=== PATIENT | female | born 1990 | race Caucasian/White ===

== ENCOUNTER → 2018-07-24 | Outpatient (CLI) | payer OTHER ==
[2018-07-24 13:08] LABS: T4, Free (Free Thyroxine) 0.97 ng/dL (0.78-2.19)
--- NOTE | 2018-07-24 13:18 | US ---
EXAMINATION TYPE: US thyroid st tissue head/neck DATE OF EXAM: 07/24/2018 COMPARISON: NONE CLINICAL HISTORY: R22.0 Swelling Mass. Fullness at right thyroid area x 1 year; maternal history of t hyroid disease GLAND SIZE: Right Lobe: 5.3 x 2.0 x 1.3 cm Overall Parenchyma: homogenous Left Lobe: 4.5 x 1.6 x 0.9 cm Overall Parenchyma: homogeneous Isthmus Thickness: 0.4 cm NODULES RIGHT: # of nodules measured on right: 1 1. 0.6 X 0.5 x 0.3 cm hypoechoic mixed nodule at the mid pole with well-defined margins. This nodu le is wider than tall and shows intranodular vascularity. Prior size: no previous US 2. 2 mm benign colloid cyst is noted. 3. At the area of pain there is a nodular region at the posterior margin of the thyroid gland that me asures approximately 5 mm on image 26. This could represent an ill-defined thyroid nodule or parathyr oid nodule. LEFT: # of nodules measured on left: 1 1. 0.5 X 0.4 x 0.3 cm hypoechoic solid nodule at the mid pole with well-defined margins. This nodu le is wider than tall and shows no intranodular vascularity. ISTHMUS: # of nodules measured in the isthmus: 0 Bilateral neck scanned: no evidence of lymphadenopathy. IMPRESSION: 1. Subcentimeter bilateral thyroid nodules that are too small for biopsy. Surveillance is recommended . 2. 5 mm nodular region at the posterior margin of the thyroid gland in the patient's stated area of p ain could represent a parathyroid nodule such as adenoma or ill-defined thyroid nodule. Correlation w ith serum laboratory values and consideration for nuclear medicine parathyroid scan should be given.
== END | disposition home or self-care (01) ==
LOC: RADUSWWP 11:02
PROVIDERS: ATTEND Family Medicine
DX: E04.2 Nontoxic multinodular goiter (principal); R22.0 Localized swelling, mass and lump, head
CPT/HCPCS: 36415; 76536; 84439; 84443

== ENCOUNTER → 2018-08-17 | Outpatient (CLI) | payer OTHER ==
--- NOTE | 2018-08-17 15:46 | NM ---
EXAMINATION TYPE: NM parathyroid w/spect DATE OF EXAM: 08/17/2018 COMPARISON: Thyroid ultrasound July 24, 2018 HISTORY: Abnormal ultrasound, posterior thyroid nodule. TECHNIQUE: Following administration of 22.4 mCi Tc99m Sestamibi. Anterior projection images of the neck and ches t were obtained 10 minutes and 3 hours post injection. SPECT images of the neck and chest were obtai ozzie and reconstructed in three axes. FINDINGS: Thyroid tracer washout: Delayed images demonstrate near-complete tracer washout from the thyroid. Parathyroid uptake: None. The two-hour delayed images do not demonstrate any focal abnormal persisten t uptake in the region of the parathyroid glands to suggest parathyroid adenoma. Normal uptake: There is physiological tracer uptake in the salivary glands. IMPRESSION: Normal parathyroid imaging study. No evidence for suspicious mediastinal uptake to suggest mediastina l parathyroid adenoma with particular attention to posterior right thyroid region.
== END ==
LOC: RADNMMAIN 11:26
PROVIDERS: ATTEND Surgery
DX: E04.1 Nontoxic single thyroid nodule (principal)
CPT/HCPCS: 78071; A9500

== ENCOUNTER → 2019-04-17 | Outpatient (CLI) | payer OTHER ==
[2019-04-17 15:57] LABS: Urine Alcohol Negative (Negative); Urine Barbiturate Negative (Negative); Urine Cocaine Negative (Negative); Urine Methadone Negative (Negative); Urine Opiates Negative (Negative); Urine Phencyclidine Negative (Negative)
[2019-04-17 18:35] LABS: Hepatitis A Antibody IgM Non-Reactive (Non-Reactive); Hepatitis B Core IgM Non-Reactive (Non-Reactive)
== END | disposition home or self-care (01) ==
LOC: LABWHC1 10:13
PROVIDERS: ATTEND Family Medicine
DX: Z00.00 Encounter for general adult medical examination without abnormal findings (principal)
CPT/HCPCS: 36415; 80074; 80306; 86735; 86762; 86765; 86787

== ENCOUNTER → 2021-09-17 | Outpatient (CLI) | payer OTHER | END | disposition home or self-care (01) | LOC: LABWHC1 10:43 | PROVIDERS: ATTEND Emergency Medicine | DX: U07.1 COVID-19 (principal); Z11.59 Encounter for screening for other viral diseases | CPT/HCPCS: 87635 ==

== ENCOUNTER → 2021-09-18 | Outpatient (CLI) | payer OTHER | END | disposition home or self-care (01) | LOC: LABWHC1 10:16 | PROVIDERS: ATTEND Emergency Medicine | DX: Z20.822 Contact with and (suspected) exposure to COVID-19 (principal) | CPT/HCPCS: 87635 ==